=== PATIENT | female | born 1985 | race Caucasian/White ===

== ENCOUNTER 2018-08-03 14:11 | Inpatient (IN) | payer MEDICAID ==
[~2018-08-03] VITALS: Ht 170.2 cm; Wt 160.6 kg
[2018-08-03 14:11] VITALS: BP_SYST 134
[2018-08-03] MEDS ORDERED: KETOROLAC TROMETHAMINE 60 MG/2 ML VIAL IM ONE (14:30)
[2018-08-03] MEDS ORDERED: MORPHINE 4 MG/ML INJ. SYRINGE IVP ONE ×2 (17:45→20:30)
[2018-08-03] MEDS ORDERED: ONDANSETRON HCL 4 MG/5 ML UDC PO ONE (17:45)
[2018-08-03] MEDS ORDERED: ONDANSETRON HCL 4 MG/2 ML VIAL ONE (18:02)
[2018-08-03] MEDS ORDERED: ZOLPIDEM TARTRATE 5 MG TABLET PO PRN (18:30)
[2018-08-03] MEDS ORDERED: POTASSIUM CHLORIDE 20 MEQ TAB.PRT.SR PO PRN (18:30)
[2018-08-03] MEDS ORDERED: ONDANSETRON HCL 4 MG/2 ML VIAL IVP PRN (18:30)
[2018-08-03] MEDS ORDERED: MORPHINE 2 MG/ML INJ. SYRINGE IVP PRN ×4 (18:30→20:45)
[2018-08-03] MEDS ORDERED: MAGNESIUM SULFATE 50 ML IV PRN (18:30)
[2018-08-03] MEDS ORDERED: ACETAMINOPHEN 325 MG TABLET PO PRN (18:30)
[2018-08-03] MEDS ORDERED: DOCUSATE SODIUM 100 MG CAPSULE PO PRN (18:30)
[2018-08-03] MEDS ORDERED: MUPIROCIN 2% TOPICAL OINTMENT 22 GM NS PRN (18:30)
[2018-08-03 19:22] VITALS: BP_SYST 125
[2018-08-03] MEDS ORDERED: MORPHINE 2 MG/ML INJ. SYRINGE IVP ONE (20:45)
[2018-08-03] MEDS: MORPHINE 4 MG/ML INJ. SYRINGE IVP PRN (22:13)
[2018-08-03] MEDS ORDERED: MORPHINE 4 MG/ML INJ. SYRINGE IVP SCH (22:15)
[2018-08-04] MEDS: LORazepam 2 MG/ML VIAL IVP PRN ×2 (00:31→06:25)
[2018-08-04] MEDS: MORPHINE 4 MG/ML INJ. SYRINGE IVP PRN ×7 (03:43→23:59)
[2018-08-04 07:09] LABS: CALCIUM 8.4 mg/dL (8.4-11.0); CREATININE 0.55 mg/dL (0.55-1.30); POTASSIUM 3.5 mmol/L (3.5-5.1)
[2018-08-04 07:21] LABS: BASOPHILS % (AUTO) 0.3 % (0.0-2.0); EOSINOPHILS % (AUTO) 0.4 % (0.0-4.0); HEMATOCRIT 37.6 % (36-48); HEMOGLOBIN 12.4 g/dL (12.0-16.0); LYMPHOCYTES # (AUTO) 1.9 K/uL (1.0-5.5); LYMPHOCYTES % (AUTO) 21.7 % (20.5-51.5); MEAN CORPUSCULAR HEMOGLOBIN 26 pg (27-31); MEAN CORPUSCULAR HGB CONC 33 % (32-36); MEAN CORPUSCULAR VOLUME 80 fL (79.0-98.0); MONOCYTES # (AUTO) 0.5 K/uL (0.0-1.0); MONOCYTES % (AUTO) 5.3 % (1.7-9.3); NEUTROPHILS # (AUTO) 6.6 K/uL (1.8-7.7); NEUTROPHILS % (AUTO) 72.3 % (40.0-70.0); PLATELET COUNT (AUTO) 257 K/uL (130-430); RED BLOOD CELL COUNT(AUTO) 4.71 MIL/uL (4.2-6.2); RED CELL DISTRIBUTION WIDTH 14.3 % (9.0-15.0)
[2018-08-04 08:02] VITALS: BP_SYST 130
[2018-08-04] MEDS: D5NS 1,000 ML IV SCH ×2 (09:55→18:43)
[2018-08-04 12:00] VITALS: BP_SYST 131
[2018-08-04] MEDS ORDERED: ENOXAPARIN SODIUM 40 MG/0.4 ML SYRINGE SUBCUT ONE (13:15)
[2018-08-04 16:45] VITALS: BP_SYST 147
[2018-08-04 20:00] VITALS: BP_SYST 129
[2018-08-05] VITALS: BP_SYST 127
[2018-08-05] MEDS: D5NS 1,000 ML IV SCH ×2 (01:39→14:45)
[2018-08-05 06:30] LABS: BASOPHILS % (AUTO) 0.3 % (0.0-2.0); EOSINOPHILS # (AUTO) 0.1 K/uL (0.0-0.4); EOSINOPHILS % (AUTO) 1.2 % (0.0-4.0); HEMATOCRIT 37.5 % (36-48); HEMOGLOBIN 12.4 g/dL (12.0-16.0); LYMPHOCYTES # (AUTO) 1.9 K/uL (1.0-5.5); LYMPHOCYTES % (AUTO) 20.9 % (20.5-51.5); MEAN CORPUSCULAR HEMOGLOBIN 26 pg (27-31); MEAN CORPUSCULAR HGB CONC 33 % (32-36); MEAN CORPUSCULAR VOLUME 80 fL (79.0-98.0); MONOCYTES # (AUTO) 0.5 K/uL (0.0-1.0); MONOCYTES % (AUTO) 5.7 % (1.7-9.3); NEUTROPHILS # (AUTO) 6.7 K/uL (1.8-7.7); NEUTROPHILS % (AUTO) 71.9 % (40.0-70.0); PLATELET COUNT (AUTO) 241 K/uL (130-430); RED BLOOD CELL COUNT(AUTO) 4.69 MIL/uL (4.2-6.2); RED CELL DISTRIBUTION WIDTH 14.1 % (9.0-15.0); WHITE BLOOD COUNT (AUTO) 9.2 K/uL (4.8-10.8)
[2018-08-05 06:46] LABS: CALCIUM 8.3 mg/dL (8.4-11.0); CREATININE 0.5 mg/dL (0.55-1.30); POTASSIUM 3.3 mmol/L (3.5-5.1)
[2018-08-05] MEDS: MORPHINE 4 MG/ML INJ. SYRINGE IVP PRN (07:30)
[2018-08-05 08:16] VITALS: BP_SYST 135
[2018-08-05] MEDS ORDERED: ENOXAPARIN SODIUM 40 MG/0.4 ML SYRINGE SUBCUT SCH (09:00)
[2018-08-05 12:24] VITALS: BP_SYST 140
[2018-08-05] MEDS: HYDROcodone/ACETAMIN 5-325 MG TAB (NORCO/ VICODIN) PO PRN ×2 (13:01→17:10)
[2018-08-05 16:15] VITALS: BP_SYST 129
[2018-08-05] MEDS ORDERED: TYC3 PO (16:33)
[2018-08-05 16:42] VITALS: BP_SYST 129
== END 2018-08-05 18:11 | disposition home or self-care (01) | DRG 342 ==
LOC: SED 14:11 → SMU 18:49
PROVIDERS: ADMIT General Practice; ATTEND General Practice
PROC: 2W3BX1Z Immobilization of Left Upper Arm using Splint (ICD-10-PCS; principal; 2018-08-04)
DX: S42.352A Displaced comminuted fracture of shaft of humerus, left arm, initial encounter for closed fracture (principal); E66.01 Morbid (severe) obesity due to excess calories; E87.6 Hypokalemia; W01.0XXA Fall on same level from slipping, tripping and stumbling without subsequent striking against object, initial encounter; Y93.89 Activity, other specified; Y92.098 Other place in other non-institutional residence as the place of occurrence of the external cause; Y99.8 Other external cause status; Z68.44 Body mass index [BMI] 60.0-69.9, adult; Z98.891 History of uterine scar from previous surgery
CPT/HCPCS: 36415; 73060-TC; 80048; 83036; 83735-TC; 85025; 96372; 96374; 99285; J1650; J1885; J2060; J2270; J2405; J7042; Q0162